=== PATIENT | male | born 1975 ===

== ENCOUNTER → 2020-03-18 | Outpatient (REF) ==
--- NOTE | 2020-03-18 11:10 | Diagnostic Imaging Report ---
INDICATION: Preemployment physical PA and lateral chest obtained at 11:03 a.m. Heart and mediastinal silhouette are normal in appearance. Lungs are clear. There is no pneumothorax or pleural fluid. IMPRESSION: Negative chest. Dictated by: Dictated on workstation # [id number]
== END ==
LOC: OCC 10:54
PROVIDERS: ATTEND Family Medicine
DX: Z02.1 Encounter for pre-employment examination (principal)
CPT/HCPCS: 71046